=== PATIENT | female | born 1955 ===

== ENCOUNTER 2018-03-31 06:35 | Day surgery (SDC) | payer OTHER ==
[2018-03-30 13:26] VITALS: BMI 28.5
[2018-03-31 07:04] VITALS: PULSE 69; RESP 19; TEMP 97.7; O2SAT 97
[2018-03-31] MEDS ORDERED: Propofol 10 mg/ml Inj (20 ML) ONE (08:04)
[2018-03-31] MEDS ORDERED: Lactated Ringer's 1,000 ML IV ONE (08:13)
--- NOTE | 2018-03-31 08:14 | CP.SDSHP ---
Same Day Surgery H & P - History Proposed Procedure: EGD/Biopsy Pre-Op Diagnosis: Abdominal pain - Previous Medical/Surgical History Comments: SLE Osteoporosis Glaucoma Previous Surgical History: bladder - Allergies Allergies: Allergies Penicillins Allergy (Verified 03/31/18 06:47) RASH - Current Medications Current Medications: reviewed, per reconciliation - Physical Exam General Appearance: wdwn nad Vital Signs: Vital Signs 03/31/18 06:56 Temperature 97.7 F Pulse Rate 69 Respiratory 19 Rate Blood Pressure 98/59 L O2 Sat by Pulse 97 Oximetry Mental Status: Alert & Oriented x3 Heart: WNL Lungs: WNL GI: WNL - {Optional Preform as Required} Abdomen: WNL - Impression Impression: abdominal pain Pt. Evaluated Today:Candidate for Anesthesia & Procedure: Yes - Date & Time Date: 03/31/18 Time: 08:14 Short Stay Discharge - Short Stay Discharge Admitting Diagnosis/Reason for Visit: EPIGASTRIC PAIN Disposition: HOME/ ROUTINE
[2018-03-31 10:58] VITALS: BP 126/73
== END 2018-03-31 11:58 | disposition home or self-care (01) ==
LOC: C.ENDO 06:35
PROVIDERS: ATTEND Internal Medicine Gastroenterology
DX: K29.50 Unspecified chronic gastritis without bleeding (principal); R10.13 Epigastric pain; K44.9 Diaphragmatic hernia without obstruction or gangrene; K31.9 Disease of stomach and duodenum, unspecified; J45.909 Unspecified asthma, uncomplicated
CPT/HCPCS: 43239; 88305; 88342; J2001; J2704; J7120